=== PATIENT | female | born 1940 | race African-American/Black ===

== ENCOUNTER 2022-07-21 07:17 | Outpatient (CLI) | payer MEDICARE | END 2022-07-21 07:18 | disposition home or self-care (01) | LOC: CSHCT 07:17 | PROVIDERS: ATTEND Nurse Anesthetist, Certified Registered | DX: R10.9 Unspecified abdominal pain (principal); K76.9 Liver disease, unspecified; M47.819 Spondylosis without myelopathy or radiculopathy, site unspecified | CPT/HCPCS: 74178; 82565 ==